=== PATIENT | female | born 1960 | race African-American/Black ===

== ENCOUNTER 2016-08-19 08:33 | Emergency (ER) | payer MEDICARE ==
[~2016-08-19] VITALS: Ht 165.1 cm; Wt 84.0 kg
[2016-08-19] MEDS ORDERED: METOCLOPRAMIDE HCL 10MG/2ML VIAL IV ONE (09:30)
[2016-08-19] MEDS ORDERED: MECLIZINE 25MG TABLET PO ONE (09:30)
[2016-08-19] MEDS ORDERED: SODIUM CHLORIDE 0.9% 1,000 ML IV ONE (09:30)
[2016-08-19 09:46] LABS: BASOPHILS % 0.6 % (0.0-2.0); DIFFERENTIAL COMMENT 0; EOSINOPHILS % 0.6 % (0.0-5.0); HEMATOCRIT. 39.3 % (36.0-48.0); HEMOGLOBIN. 13.4 g/dL (12.0-16.0); LYMPHOCYTES % 38.6 % (20.0-50.0); MEAN CORPUSCULAR VOLUME 76.3 fL (81.0-99.0); MEAN PLATELET VOLUME 9.7 fl (7.4-10.4); NEUTROPHILS % 52.2 % (40.0-76.0); PLATELET 164 x1000/uL (130-400); RED BLOOD CELL COUNT 5.15 mill/uL (4.2-5.4)
[2016-08-19 09:58] LABS: ALANINE AMINOTRANSFERASE 30 IU/L (13-61); ALBUMIN 3.9 g/dL (3.4-5.0); ANION GAP 12; CARBON DIOXIDE 30 mEq/L (21-32); CHLORIDE 102 mEq/L (98-107); INDEX HEMOLYSI 1 (1-3); INDEX ICTERIC 1 (1-4); INDEX LIPEMIC 1 (1-3); UREA NITROGEN BLOOD 10 mg/dL (7-21); eGFR > 60 mL/min (>60)
[2016-08-19 10:50] VITALS: BP 116/72
== END 2016-08-19 13:10 | disposition home or self-care (01) ==
LOC: ER 08:33
DX: H81.10 Benign paroxysmal vertigo, unspecified ear (principal); I10 Essential (primary) hypertension
CPT/HCPCS: 36415; 80053; 85025; 96361; 96374; 99285; J2765; J7030; J8597

== ENCOUNTER 2021-07-31 11:59 | Emergency (ER) | payer MEDICARE ==
[~2021-07-31] VITALS: Ht 162.6 cm; Wt 86.0 kg
[2021-07-31] MEDS ORDERED: ACETAMINOPHEN 325MG TABLET PO ONE (13:15)
[2021-07-31 14:09] LABS: BASOPHILS % 0.9 % (0.0-2.0); EOSINOPHILS % 1.3 % (0.0-5.0); HEMOGLOBIN. 12.6 g/dL (12.0-16.0); LYMPHOCYTES % 38.2 % (20.0-50.0); MEAN CORPUSCULAR HEMOGLOBIN 25.5 pg (28.0-32.0); MEAN CORPUSCULAR VOLUME 76.8 fL (81.0-99.0); MEAN PLATELET VOLUME 9.5 fl (7.4-10.4); MONOCYTES % 13.4 % (2.0-8.0); NEUTROPHILS % 46.2 % (40.0-76.0); PLATELET 175 x1000/uL (130-400); RED BLOOD CELL COUNT 4.94 mill/uL (4.2-5.4); RED CELL DISTRIBUTION WIDTH 15.7 % (11.6-14.6)
[2021-07-31 14:14] LABS: CLARITY URINE CLEAR (CLEAR); COLOR URINE YELLOW (YELLOW); KETONES URINE NEGATIVE (NEGATIVE); LEUKOCYTE ESTERASE URINE TRACE (NEGATIVE); NITRITE URINE NEGATIVE (NEGATIVE); OCCULT BLOOD URINE NEGATIVE (NEGATIVE); PH URINE 5.5 (4.5-8.0); PROTEIN URINE NEGATIVE (NEGATIVE); SPECIFIC GRAVITY URINE 1.012 (1.005-1.030); UROBILINOGEN URINE 0.2 E.U./dL (0.2-1.0)
[2021-07-31 14:21] LABS: CHLORIDE 109 mEq/L (98-107)
[2021-07-31] MEDS ORDERED: CYCLOBENZAPRINE 10MG TABLET PO NR (15:00)
[2021-07-31] MEDS ORDERED: CYCL5TAB MT (16:33)
[2021-07-31 16:50] VITALS: BP 140/79
== END 2021-07-31 16:57 | disposition home or self-care (01) ==
LOC: ER 11:59
DX: M54.50 Low back pain, unspecified (principal); M48.061 Spinal stenosis, lumbar region without neurogenic claudication; M48.8X4 Other specified spondylopathies, thoracic region; I10 Essential (primary) hypertension; Z98.1 Arthrodesis status; Z85.3 Personal history of malignant neoplasm of breast; Z85.528 Personal history of other malignant neoplasm of kidney; Z90.5 Acquired absence of kidney; Z90.10 Acquired absence of unspecified breast and nipple; Z88.2 Allergy status to sulfonamides
CPT/HCPCS: 36415; 72148; 80053; 81003; 85025; 99284

== ENCOUNTER 2021-09-13 17:19 | Inpatient (IN) | payer BC, MEDICARE ==
[~2021-09-13] VITALS: Ht 160 cm; Wt 83.9 kg
[~2021-09-13 17:19] MED LIST: CYCL5TAB MT
[2021-09-13] MEDS ORDERED: ONDANSETRON HCL 4MG/2ML INJ IV STA (18:33)
[2021-09-13] MEDS ORDERED: MORPHINE SULFATE 4 MG/ML CPJ (NOT FOR IM USE) IV STA (18:33)
[2021-09-13] MEDS ORDERED: SODIUM CHLORIDE 0.9% 1,000 ML IV ONE (18:45)
[2021-09-13 19:17] LABS: CHLORIDE 104 mEq/L (98-107)
[2021-09-13 19:22] LABS: BASOPHILS % 0.5 % (0.0-2.0); EOSINOPHILS % 1.1 % (0.0-5.0); HEMATOCRIT. 36.1 % (36.0-48.0); HEMOGLOBIN. 12.2 g/dL (12.0-16.0); LYMPHOCYTES % 33.5 % (20.0-50.0); MEAN CORPUSCULAR HEMOGLOBIN 25.3 pg (28.0-32.0); MEAN CORPUSCULAR VOLUME 74.7 fL (81.0-99.0); MEAN PLATELET VOLUME 9.2 fl (7.4-10.4); NEUTROPHILS % 54.9 % (40.0-76.0); PLATELET 211 x1000/uL (130-400); RED BLOOD CELL COUNT 4.83 mill/uL (4.2-5.4); RED CELL DISTRIBUTION WIDTH 15.9 % (11.6-14.6)
[2021-09-13] MEDS ORDERED: ONDANSETRON HCL 4MG/2ML INJ IV SCH ×2 (21:00→21:15)
[2021-09-13] MEDS ORDERED: MORPHINE SULFATE 4 MG/ML CPJ (NOT FOR IM USE) IV NR (21:15)
[2021-09-14 04:00] VITALS: BP 137/78
[2021-09-14] MEDS ORDERED: AMLO10TA80 PO (04:43)
[2021-09-14] MEDS ORDERED: ANAS1TAB49 PO (04:43)
[2021-09-14] MEDS ORDERED: ATOR40TA70 PO (04:43)
[2021-09-14] MEDS ORDERED: IRBE150T51 PO (04:43)
[2021-09-14] MEDS ORDERED: PROC10TA17 PO (04:43)
[2021-09-14] MEDS ORDERED: CALC-1305 PO (04:43)
[2021-09-14] MEDS ORDERED: MORPHINE SULFATE 2 MG/ML CPJ (NOT FOR IM USE) IV PRN (05:45)
[2021-09-14 07:47] VITALS: BP 121/76
[2021-09-14 09:23] LABS: BASOPHILS % 0.7 % (0.0-2.0); EOSINOPHILS % 1.6 % (0.0-5.0); HEMATOCRIT. 35.3 % (36.0-48.0); HEMOGLOBIN. 11.7 g/dL (12.0-16.0); LYMPHOCYTES % 34.3 % (20.0-50.0); MEAN CORPUSCULAR HEMOGLOBIN 25.2 pg (28.0-32.0); MEAN CORPUSCULAR VOLUME 76.1 fL (81.0-99.0); MEAN PLATELET VOLUME 8.9 fl (7.4-10.4); MONOCYTES % 9.1 % (2.0-8.0); NEUTROPHILS % 54.3 % (40.0-76.0); PLATELET 200 x1000/uL (130-400); RED BLOOD CELL COUNT 4.64 mill/uL (4.2-5.4); RED CELL DISTRIBUTION WIDTH 15.6 % (11.6-14.6)
[2021-09-14 10:00] VITALS: BP 139/80
[2021-09-14] MEDS: DEXT 5%/LACTATED RINGERS 1,000 ML IV SCH (11:00)
[2021-09-14 12:00] VITALS: BP 145/80
[2021-09-14] MEDS: DEXAMETHASONE 4MG/ML 1ML VIAL IV SCH ×2 (12:19→19:33)
[2021-09-14] MEDS ORDERED: CLONIDINE 0.1MG TABLET PO PRN (13:15)
[2021-09-14] MEDS ORDERED: HYDROMORPHONE HCL/PF 2MG/ML CPJ IM PRN (13:15)
[2021-09-14] MEDS ORDERED: ACETAMINOPHEN 325MG TABLET PO PRN (13:15)
[2021-09-14] MEDS ORDERED: METHOCARBAMOL 500MG TABLET PO PRN (13:15)
[2021-09-14] MEDS ORDERED: ONDANSETRON HCL 4MG/2ML INJ IV PRN (13:15)
[2021-09-14 16:00] VITALS: BP 159/89
[2021-09-14] MEDS: HYDROCODONE/ACETAMINOPHEN 10/325MG TABLET PO PRN (16:13)
[2021-09-14 20:00] VITALS: BP 122/64
[2021-09-14] MEDS: ATORVASTATIN CALCIUM 40MG TABLET PO SCH (20:50)
[2021-09-15] VITALS: BP 121/84
[2021-09-15] MEDS: HYDROCODONE/ACETAMINOPHEN 10/325MG TABLET PO PRN ×3 (00:46→14:56)
[2021-09-15] MEDS: DEXAMETHASONE 4MG/ML 1ML VIAL IV SCH ×4 (00:46→18:55)
[2021-09-15] MEDS: DEXT 5%/LACTATED RINGERS 1,000 ML IV SCH ×3 (00:54→18:55)
[2021-09-15 04:00] VITALS: BP 129/80
[2021-09-15 07:12] LABS: BASOPHILS % 0.2 % (0.0-2.0); HEMATOCRIT. 32.9 % (36.0-48.0); LYMPHOCYTES % 16.8 % (20.0-50.0); MEAN CORPUSCULAR HEMOGLOBIN 25.9 pg (28.0-32.0); MEAN CORPUSCULAR VOLUME 77.4 fL (81.0-99.0); MEAN PLATELET VOLUME 9.3 fl (7.4-10.4); PLATELET 186 x1000/uL (130-400); RED BLOOD CELL COUNT 4.25 mill/uL (4.2-5.4); RED CELL DISTRIBUTION WIDTH 15.8 % (11.6-14.6)
[2021-09-15 07:23] LABS: CHLORIDE 105 mEq/L (98-107)
[2021-09-15 08:00] VITALS: BP 154/81
[2021-09-15] MEDS: LOSARTAN POTASSIUM 50 MG TABLET PO SCH (08:19)
[2021-09-15] MEDS: AMLODIPINE 10MG TABLET PO SCH (08:19)
[2021-09-15] MEDS: ANASTROZOLE 1 MG TABLET PO SCH (08:19)
[2021-09-15] MEDS ORDERED: BRIM5DRO6 EACHEYE (11:26)
[2021-09-15 12:00] VITALS: BP 144/78
[2021-09-15 16:00] VITALS: BP 153/85
[2021-09-15] MEDS ORDERED: NALOXONE HCL 0.4MG/ML VIAL IV PRN (18:30)
[2021-09-15 20:00] VITALS: BP 128/72
[2021-09-15] MEDS: ATORVASTATIN CALCIUM 40MG TABLET PO SCH (21:17)
[2021-09-16] VITALS: BP 115/68
[2021-09-16] MEDS: DEXAMETHASONE 4MG/ML 1ML VIAL IV SCH ×3 (00:18→08:58)
[2021-09-16 04:00] VITALS: BP 147/91
[2021-09-16] MEDS: DEXT 5%/LACTATED RINGERS 1,000 ML IV SCH (06:14)
[2021-09-16 08:00] VITALS: BP 134/83
[2021-09-16] MEDS: LOSARTAN POTASSIUM 50 MG TABLET PO SCH (08:58)
[2021-09-16] MEDS: ANASTROZOLE 1 MG TABLET PO SCH (08:58)
[2021-09-16] MEDS: AMLODIPINE 10MG TABLET PO SCH (08:59)
[2021-09-16] MEDS ORDERED: LACTULOSE 20G/30ML UDC PO SCH (10:30)
[2021-09-16] MEDS ORDERED: FOLIC ACID 1MG TABLET PO SCH (10:30)
[2021-09-16 12:00] VITALS: BP 149/98
[2021-09-16 14:55] VITALS: BP 149/98
[2021-09-16 16:00] VITALS: BP 131/73
== END 2021-09-16 16:43 | disposition short-term general hospital (02) | DRG 551 ==
LOC: ER 17:19 → MICUSO 23:30 → 6WST 09-14 02:11
PROVIDERS: ADMIT Internal Medicine; ATTEND Internal Medicine
DX: M48.02 Spinal stenosis, cervical region (principal); G82.50 Quadriplegia, unspecified; G95.20 Unspecified cord compression; C79.49 Secondary malignant neoplasm of other parts of nervous system; G95.89 Other specified diseases of spinal cord; Z20.822 Contact with and (suspected) exposure to COVID-19; I10 Essential (primary) hypertension; M48.061 Spinal stenosis, lumbar region without neurogenic claudication; Z90.11 Acquired absence of right breast and nipple; Z85.528 Personal history of other malignant neoplasm of kidney; Z90.5 Acquired absence of kidney; Z88.2 Allergy status to sulfonamides; Z85.3 Personal history of malignant neoplasm of breast; Z98.1 Arthrodesis status; Z79.899 Other long term (current) drug therapy
CPT/HCPCS: 36415; 71045; 72141; 72146; 72148; 80048; 80053; 82962; 84484; 85025; 86850; 86900; 87426; 93005; 99291; J1100; J2270; J2405; J7030; J7121

== ENCOUNTER 2023-10-21 12:31 | Emergency (ER) | payer BC, OTHER ==
[~2023-10-21] VITALS: Ht 167.6 cm; Wt 75.0 kg
[~2023-10-21 12:31] MED LIST changes: +AMLO10TA80 PO; +ANAS1TAB49 PO; +ATOR40TA70 PO; +BRIM5DRO6 EACHEYE; +CALC-1305 PO; +IRBE150T51 PO; +PROC-1 PO
[2023-10-21 12:35] VITALS: BP 165/93; PULSE 98; RESP 18; TEMP 98.1; O2SAT 100
[2023-10-21 13:06] LABS: BASOPHILS % 1.3 % (0.0-2.0); DIFFERENTIAL COMMENT 0; EOSINOPHILS % 2.5 % (0.0-5.0); HEMATOCRIT. 31.5 % (36.0-48.0); HEMOGLOBIN. 10.7 g/dL (12.0-16.0); LYMPHOCYTES % 38.2 % (20.0-50.0); MEAN CORPUSCULAR HEMOGLOBIN 26.7 pg (28.0-32.0); MEAN CORPUSCULAR HGB CONC 33.9 g/dL (31.0-37.0); MEAN CORPUSCULAR VOLUME 78.8 fL (81.0-99.0); MEAN PLATELET VOLUME 8.5 fl (7.4-10.4); MONOCYTES % 8.3 % (2.0-8.0); NEUTROPHILS % 49.7 % (40.0-76.0); PLATELET 231 x1000/uL (130-400); RED BLOOD CELL COUNT 3.99 mill/uL (4.2-5.4); RED CELL DISTRIBUTION WIDTH 20.1 % (11.6-14.6); WHITE BLOOD COUNT 5.1 x1000/uL (4.5-11.0)
[2023-10-21 13:10] LABS: CHLORIDE 106 mEq/L (98-107); POTASSIUM 4.2 mEq/L (3.5-5.1); SODIUM 141 mEq/L (136-145)
[2023-10-21 13:11] LABS: CARBON DIOXIDE 28 mEq/L (21-32)
[2023-10-21 13:16] LABS: CREATININE 1.9 mg/dL (0.6-1.0); GLUCOSE 98 mg/dL (70-105); UREA NITROGEN BLOOD 18 mg/dL (9-23)
[2023-10-21 13:18] LABS: ALANINE AMINOTRANSFERASE 31 IU/L (10-49); ALBUMIN 4.9 g/dL (3.2-4.8); ASPARTATE AMINOTRANSFERASE 23 IU/L (<34); BILIRUBIN DIRECT 0.1 mg/dL (<=3.0); BILIRUBIN TOTAL 0.4 mg/dL (0.1-1.0); PROTEIN TOTAL 7.5 g/dL (6.0-8.3)
== END 2023-10-21 15:58 | disposition home or self-care (01) ==
LOC: ER 13:36
DX: R10.13 Epigastric pain (principal); I10 Essential (primary) hypertension; Z85.9 Personal history of malignant neoplasm, unspecified; Z98.890 Other specified postprocedural states; Z79.899 Other long term (current) drug therapy
CPT/HCPCS: 36415; 76705; 80053; 80076; 85025; 93005; 99284

== ENCOUNTER 2024-07-21 20:42 | Inpatient (IN) | payer MEDICARE ==
[~2024-07-21] VITALS: Ht 160 cm; Wt 64.9 kg
[~2024-07-21 20:42] MED LIST changes: +CHOL400D7 PO; -CYCL5TAB MT; +CYCL5TAB3 MT; +GLIP5TAB22 PO; +[UNRECOGNIZED DRUG - CODE]
[2024-07-21 21:38] LABS: HEMATOCRIT. 27.8 % (36.0-48.0); HEMOGLOBIN. 8.9 g/dL (12.0-16.0); MEAN CORPUSCULAR HEMOGLOBIN 24.5 pg (28.0-32.0); MEAN CORPUSCULAR HGB CONC 32.1 g/dL (31.0-37.0); MEAN CORPUSCULAR VOLUME 76.1 fL (81.0-99.0); MEAN PLATELET VOLUME 7.2 fl (7.4-10.4); PLATELET 365 x1000/uL (130-400); RED BLOOD CELL COUNT 3.66 mill/uL (4.2-5.4); RED CELL DISTRIBUTION WIDTH 19.9 % (11.6-14.6)
[2024-07-21 21:39] LABS: DIFFERENTIAL COMMENT 1
[2024-07-21 21:54] LABS: CHLORIDE 100 mEq/L (98-107); POTASSIUM 4.2 mEq/L (3.5-5.1); SODIUM 139 mEq/L (136-145)
[2024-07-21 21:55] LABS: CALCIUM 9.3 mg/dL (8.7-10.4); CARBON DIOXIDE 28 mEq/L (21-32)
[2024-07-21 22:00] LABS: CREATININE 1.3 mg/dL (0.6-1.0); GLUCOSE 99 mg/dL (70-105); UREA NITROGEN BLOOD 13 mg/dL (9-23)
[2024-07-21 22:02] LABS: TROPONIN I HIGH SENSITIVITY 16 ng/L (3.0-34)
[2024-07-21] MEDS: SODIUM CHLORIDE 0.9% 1,000 ML IV ONE (22:59)
[2024-07-21 23:01] LABS: CLARITY URINE CLEAR (CLEAR); COLOR URINE YELLOW (YELLOW); GLUCOSE URINE NEGATIVE (NEGATIVE); KETONES URINE NEGATIVE (NEGATIVE); LEUKOCYTE ESTERASE URINE 1+ (NEGATIVE); NITRITE URINE NEGATIVE (NEGATIVE); OCCULT BLOOD URINE NEGATIVE (NEGATIVE); PROTEIN URINE NEGATIVE (NEGATIVE); SPECIFIC GRAVITY URINE 1.014 (1.005-1.030); UROBILINOGEN URINE 0.2 E.U./dL (0.2-1.0)
[2024-07-21] MEDS: FAMOTIDINE 20MG/2ML VIAL IV ONE (23:07)
[2024-07-21] MEDS: ONDANSETRON HCL 4MG/2ML INJ IV ONE (23:08)
[2024-07-21] MEDS ORDERED: FAMOTIDINE 20MG/2ML VIAL IV NR (23:15)
[2024-07-21 23:16] LABS: ANISOCYTOSIS 1+; HYPOCHROMASIA 1+; MICROCYTOSIS 1+; PLATELET ESTIMATE NORMAL
[2024-07-21 23:18] LABS: BACTERIA URINE 1+; RBC URINE 0-2 /hpf (0-2); SQUAMOUS EPITHELIAL CELL URINE 1+ /lpf (RARE/1+)
[2024-07-22] VITALS (8 sets, daily range): BP systolic 94–159; BP diastolic 61–91; PULSE 65–100; RESP 15–19; TEMP 36.4–37.8; O2SAT 97–100
[2024-07-22] MEDS: MAGNESIUM/ALUMINUM HYDROXIDE/SIMETHICONE 30ML UDC PO ONE (00:39)
[2024-07-22] MEDS ORDERED: ONDANSETRON HCL 4MG/2ML INJ IV PRN (02:30)
[2024-07-22] MEDS: HYDROCODONE/ACETAMINOPHEN 5/325MG TABLET PO PRN (02:42)
[2024-07-22 07:14] LABS: HEPATITIS B SURFACE ANTIGEN NEGATIVE (Negative)
[2024-07-22 07:35] LABS: HEPATITIS C AB NON REACTIVE (Neg) (Negative)
[2024-07-22 08:39] LABS: *AMPHETAMINES SCREEN URINE NEGATIVE (NEGATIVE); *BARBITURATES SCREEN URINE NEGATIVE (NEGATIVE); *BENZODIAZEPINES SCREEN URINE NEGATIVE (NEGATIVE); *COCAINE SCREEN URINE NEGATIVE (NEGATIVE); CANNABINOID URINE SCREEN NEGATIVE (NEGATIVE); ECSTASY MDMA SCREEN URINE NEGATIVE (NEGATIVE); METHADONE URINE SCREEN NEGATIVE (NEGATIVE); OPIATES URINE SCREEN PRESUMPTIVE POSITIVE (NEGATIVE); PHENCYCLIDINE URINE SCREEN NEGATIVE (NEGATIVE)
[2024-07-22] MEDS: PANTOPRAZOLE SODIUM 40 MG/VIAL IV SCH (09:34)
[2024-07-22] MEDS ORDERED: NALOXONE HCL 0.4MG/ML VIAL IV PRN (12:15)
[2024-07-22] MEDS: HYDROMORPHONE HCL/PF 1MG/ML INJ IV PRN (13:42)
[2024-07-23] VITALS: BP 138/87; PULSE 106; RESP 15; TEMP 37.9; O2SAT 100
[2024-07-23 04:00] VITALS: BP 116/72; PULSE 92; RESP 13; TEMP 37.2; O2SAT 100
[2024-07-23 08:00] VITALS: BP 149/82; PULSE 87; RESP 13; TEMP 36.8; O2SAT 97
[2024-07-23 12:00] VITALS: BP 146/87; PULSE 81; RESP 16; TEMP 36.8; O2SAT 100
[2024-07-23] MEDS: CEFTRIAXONE 1GM/50ML 50 ML IV SCH (14:18)
[2024-07-23 16:00] VITALS: BP 144/82; PULSE 94; RESP 19; TEMP 37.1; O2SAT 100
[2024-07-23 20:00] VITALS: BP 128/81; PULSE 100; RESP 19; TEMP 38.2; O2SAT 100
[2024-07-23] MEDS: ACETAMINOPHEN 325MG TABLET PO PRN (20:12)
[2024-07-24] VITALS: BP 111/70; PULSE 73; RESP 11; TEMP 37.3; O2SAT 98
[2024-07-24 04:00] VITALS: BP 123/80; PULSE 82; RESP 17; TEMP 36.7; O2SAT 100
[2024-07-24 08:00] VITALS: BP 129/79; PULSE 85; RESP 13; TEMP 36.7; O2SAT 99
[2024-07-24 12:00] VITALS: BP 135/74; PULSE 85; RESP 20; TEMP 36.9; O2SAT 99
[2024-07-24 13:25] LABS: HEMATOCRIT. 26.9 % (36.0-48.0); HEMOGLOBIN. 8.5 g/dL (12.0-16.0); MEAN CORPUSCULAR HEMOGLOBIN 24.1 pg (28.0-32.0); MEAN CORPUSCULAR HGB CONC 31.5 g/dL (31.0-37.0); MEAN CORPUSCULAR VOLUME 76.3 fL (81.0-99.0); MEAN PLATELET VOLUME 7.4 fl (7.4-10.4); PLATELET 298 x1000/uL (130-400); RED BLOOD CELL COUNT 3.52 mill/uL (4.2-5.4); RED CELL DISTRIBUTION WIDTH 20.7 % (11.6-14.6); WHITE BLOOD COUNT 6.6 x1000/uL (4.5-11.0)
[2024-07-24 13:33] LABS: DIFFERENTIAL COMMENT 1
[2024-07-24 13:47] LABS: CHLORIDE 100 mEq/L (98-107); POTASSIUM 4.3 mEq/L (3.5-5.1); SODIUM 137 mEq/L (136-145)
[2024-07-24 13:48] LABS: CALCIUM 9.3 mg/dL (8.7-10.4); CARBON DIOXIDE 26 mEq/L (21-32)
[2024-07-24 13:53] LABS: CREATININE 0.9 mg/dL (0.6-1.0); GLUCOSE 93 mg/dL (70-105); UREA NITROGEN BLOOD 10 mg/dL (9-23)
[2024-07-24 16:00] VITALS: BP 125/71; PULSE 92; RESP 17; TEMP 36.6; O2SAT 98
[2024-07-24 20:00] VITALS: BP 134/81; PULSE 96; RESP 12; TEMP 37; O2SAT 98
[2024-07-25] VITALS: BP 123/83; PULSE 92; RESP 16; TEMP 36.8; O2SAT 97
[2024-07-25 04:00] VITALS: BP 118/84; PULSE 89; RESP 13; TEMP 36.7; O2SAT 98
[2024-07-25 08:00] VITALS: BP 123/71; PULSE 97; RESP 16; TEMP 36.7; O2SAT 98
[2024-07-25 09:38] LABS: ANISOCYTOSIS 2+; HYPOCHROMASIA 1+; MICROCYTOSIS 1+; PLATELET ESTIMATE NORMAL
[2024-07-25] MEDS: LACTULOSE 20G/30ML UDC PO NR (11:17)
[2024-07-25] MEDS: BISACODYL 10MG SUPP PR NR (11:18)
[2024-07-25 12:00] VITALS: BP 123/71; PULSE 97; RESP 16; TEMP 36.7; O2SAT 100
== END 2024-07-25 19:05 | disposition home or self-care (01) | DRG 948 ==
LOC: ER 20:42 → 3WST 07-22 01:04 → EDBEDREQTM 07-22 01:08 → EDBEDREQDT 07-22 01:08 → EDBEDREQ 07-22 01:08
PROVIDERS: ADMIT Internal Medicine; ATTEND Internal Medicine
DX: G89.3 Neoplasm related pain (acute) (chronic) (principal); N39.0 Urinary tract infection, site not specified; C79.51 Secondary malignant neoplasm of bone; C50.919 Malignant neoplasm of unspecified site of unspecified female breast; E11.22 Type 2 diabetes mellitus with diabetic chronic kidney disease; I12.9 Hypertensive chronic kidney disease with stage 1 through stage 4 chronic kidney disease, or unspecified chronic kidney disease; K59.03 Drug induced constipation; N18.9 Chronic kidney disease, unspecified; T40.605A Adverse effect of unspecified narcotics, initial encounter; Z79.811 Long term (current) use of aromatase inhibitors; Z79.84 Long term (current) use of oral hypoglycemic drugs; Z79.891 Long term (current) use of opiate analgesic; Z85.3 Personal history of malignant neoplasm of breast; Z88.2 Allergy status to sulfonamides; Y92.89 Other specified places as the place of occurrence of the external cause
CPT/HCPCS: 36415; 71045; 80048; 80305; 81003; 84484; 85025; 86705; 87340; 93005; 99285; A4606; J0696; J1171; J2405; J2470; J3490; J7030